=== PATIENT | female | born 1935 | race Caucasian/White ===

== ENCOUNTER 2017-07-23 19:42 | Inpatient (IN) | payer MEDICARE, MEDICAID ==
[~2017-07-23] VITALS: Ht 167.6 cm; Wt 81.6 kg
[~2017-07-23 19:42] MED LIST: ACET325T53 PO; ASPI-618 PO; ASPI81TA31 PO; Acetaminophen PO; Blood Sugar Diagnostic VI; CARV12.52 PO; CARV3.12 PO; DONE5TAB34 PO; EPOE1VIA12 IJ; ESCI10TA PO; FOLI0.8T23 PO; INSU100V28 SQ; LEVO50TA8 PO; LEVO75TA7 PO; LOSA50TA21 PO; MAGN400T26 PO; MAGN400T6 PO; MULT-24 PO; MULT1TAB73 PO; OMEP20CA10 PO; ONDA4TAB5 PO; PANT40TA2 PO; SIMV10TA2 PO
[2017-07-23] MEDS ORDERED: CARV12.5 PO (20:09)
[2017-07-23] MEDS ORDERED: MAG30ORA PO (20:09)
[2017-07-23] MEDS ORDERED: DOCU250C14 PO (20:09)
[2017-07-23] MEDS ORDERED: DONE10TA44 PO (20:09)
[2017-07-23] MEDS ORDERED: MIRT7.5T10 PO (20:09)
[2017-07-23] MEDS ORDERED: LORA0.5T PO (20:09)
[2017-07-23] MEDS ORDERED: TEMA7.5C2 PO (20:09)
[2017-07-23] MEDS ORDERED: QUET25TA34 PO ×2 (20:09)
[2017-07-23] MEDS ORDERED: BISA10SU8 RC (20:09)
[2017-07-23] MEDS ORDERED: ATOR10TA PO (20:09)
[2017-07-23] MEDS ORDERED: PANT40TA4 PO (20:09)
--- NOTE | 2017-07-23 20:10 | NUR ---
Patient to Radiology for CT scan via wheelchair.
--- NOTE | 2017-07-23 20:22 | NUR ---
Patient returned from CT, no acute distress noted.
--- NOTE | 2017-07-23 21:02 | NUR ---
Patient able to ambulate to restroom with assistance, urine specimen provided and taken to laboratory.
[2017-07-23 21:14] LABS: EOSINOPHILS # (AUTO) 0.1 K/uL (0.0-0.7); LYMPHOCYTES # (AUTO) 1.9 K/UL (0.8-4.8); MONOCYTES # (AUTO) 0.5 K/UL (0.1-1.30)
[2017-07-23 21:21] LABS: BASOPHILS % (AUTO) 0.4 % (0.0-2.0); HEMATOCRIT 26.9 % (37-47)
[2017-07-23 21:23] LABS: *BILIRUBIN,URIN NEGATIVE (NEGATIVE); *BLOOD, URINE Trace-lysed (NEGATIVE); *CLARITY,URINE CLEAR (CLEAR); *COLOR,URINE YELLOW (YELLOW); *KETONES,URINE NEGATIVE (NEGATIVE); *PROTEIN,URINE TRACE (NEGATIVE); *UROBILINOGEN,URINE 0.2 E.U./dl (NORMAL); LEUKOCYTE ESTERASE ,URINE TRACE (NEGATIVE); NITRITE, URINE NEGATIVE (NEGATIVE); PH,URINE 5.5 (5.0-8.0); UGLUCOSE NEGATIVE (NEGATIVE)
[2017-07-23 21:23] LABS: HEMOGLOBIN 9.2 G/DL (12.0-16.0); LYMPHOCYTES % (AUTO) 30.2 % (20.5-51.5); MEAN CORPUSCULAR HEMOGLOBIN 31.9 UUG (27.0-31.0); MEAN CORPUSCULAR HGB CONC 34 g/dL (32.0-37.0); MEAN CORPUSCULAR VOLUME 92.8 FL (81.0-99.0); MONOCYTES % (AUTO) 8.6 % (0.0-11.0); NEUTROPHILS # (AUTO) 3.9 K/UL (1.8-8.9); NEUTROPHILS % (AUTO) 58.8 % (38.5-71.5); PLATELET COUNT (AUTO) 185 K/UL (150-450); WHITE BLOOD COUNT (AUTO) 6.4 K/UL (4.0-11.2)
[2017-07-23 21:29] LABS: ALANINE AMINOTRANSFERASE 19 U/L (14-59); ALKALINE PHOSPHATASE 55 U/L (50-136); ASPARTATE AMINOTRANSFERASE 16 U/L (15-37); BILIRUBIN,DIRECT 0.1 mg/dL (0.0-0.2); BILIRUBIN,TOTAL 0.3 mg/dL (0.2-1.0); CARBON DIOXIDE 24 mmol/L (21-32); CHLORIDE 101 mmol/L (98-107); CREATININE 3.1 mg/dL (0.6-1.3); GLUCOSE 183 mg/dL (74-106); POTASSIUM 4.2 mmol/L (3.5-5.1); TOTAL PROTEIN, SERUM 7.5 g/dL (6.4-8.2); UREA NITROGEN, BLOOD 45 mg/dL (7-18)
[2017-07-23 21:35] LABS: ACETAMINOPHEN < 2.0 ug/mL (10-30); ETHANOL < 3 MG/DL (0-0)
[2017-07-23 21:42] LABS: BACTERIA,URINE NONE SEEN /HPF (NONE SEEN); SQUAMOUS EPITHELIAL CELL,UR FEW /HPF (NONE SEEN); WBC,URINE 0-3 /HPF (0-3)
--- NOTE | 2017-07-23 21:52 | NUR ---
Call placed to [facility], Dr. Roland will be paged.
[2017-07-23 21:56] LABS: *AMPHETAMINE, URINE NEGATIVE (NEGATIVE); *BARBITURATE, URINE NEGATIVE (NEGATIVE); *CANNABINOID, URINE NEGATIVE (NEGATIVE); *COCCAINE, URINE NEGATIVE (NEGATIVE); *OPIATE, URINE NEGATIVE (NEGATIVE); *PHENCYCLIDINE SCREEN,URINE NEGATIVE (NEGATIVE)
--- NOTE | 2017-07-23 22:42 | NUR ---
Pt. admitted to TELE, under care of Dr. Roland Belongs List completed
[2017-07-23 23:00] VITALS: BP 151/64
--- NOTE | 2017-07-23 23:00 | NUR ---
Admit new patient to vehicle monitor technician,patient alert,confused,disoriented ,but calm and co operative at present times,accompany by daughter,NSR on monitor, not on any distress,patient seen by ,plan of care explained to family.
[2017-07-23 23:05] LABS: THYROID STIMULATING HORMONE 0.736 mIU/mL (0.358-3.740)
[2017-07-23] MEDS ORDERED: BISACODYL 10 MG SUPP.RECT RC PRN (23:45)
[2017-07-23] MEDS ORDERED: MAG HYDROX/AL HYDROX/SIMETH 30 ML LIQUID UDC PO PRN (23:45)
[2017-07-23] MEDS ORDERED: ONDANSETRON 4 MG/2 ML VIAL IV PRN (23:45)
[2017-07-23] MEDS ORDERED: ACETAMINOPHEN 325 MG TABLET PO PRN ×2 (23:45)
--- NOTE | 2017-07-23 23:45 | NUR ---
Restoril 7.5 mg po admin for insomnia per family.
[2017-07-23] MEDS: TEMAZEPAM 7.5 MG CAPSULE PO PRN (23:46)
[2017-07-24] MEDS ORDERED: TEMAZEPAM 7.5 MG CAPSULE ONE
[2017-07-24] MEDS: IV 1/2NS 1000 ML 1,000 ML IV PRN ×3 (02:09→21:00)
--- NOTE | 2017-07-24 03:16 | NUR ---
patient got confused attempted removed iv line and tele, reoriented and hold ivf ,patient took fluid well ,bedside commode provided,bed alarm on, closed to NSG station for closely monitoring, bed alarm on.
[2017-07-24] MEDS: LORAZEPAM 0.5 MG TABLET PO PRN (03:37)
[2017-07-24] MEDS ORDERED: LORAZEPAM 0.5 MG TABLET ONE (03:52)
[2017-07-24 04:00] VITALS: BP 150/70
[2017-07-24 05:33] VITALS: BP 150/57
--- NOTE | 2017-07-24 06:18 | NUR ---
PATIENT ASLEEP ,EASILY AROUSE,NSR.FALL AND ASPIRATION PRECAUTIONS,BED ALARM ON.
[2017-07-24 06:54] LABS: BASOPHILS % (AUTO) 0.5 % (0.0-2.0); EOSINOPHILS # (AUTO) 0.1 K/uL (0.0-0.7); EOSINOPHILS % (AUTO) 2.5 % (0.0-7.0); HEMATOCRIT 26.8 % (37-47); HEMOGLOBIN 8.9 G/DL (12.0-16.0); LYMPHOCYTES % (AUTO) 33.8 % (20.5-51.5); MEAN CORPUSCULAR HEMOGLOBIN 31.4 UUG (27.0-31.0); MEAN CORPUSCULAR HGB CONC 33 g/dL (32.0-37.0); MONOCYTES # (AUTO) 0.7 K/UL (0.1-1.30); MONOCYTES % (AUTO) 11.9 % (0.0-11.0); NEUTROPHILS # (AUTO) 3.2 K/UL (1.8-8.9); NEUTROPHILS % (AUTO) 51.3 % (38.5-71.5); PLATELET COUNT (AUTO) 163 K/UL (150-450); RED BLOOD CELL COUNT(AUTO) 2.86 MIL/UL (4.2-5.4)
[2017-07-24] MEDS: LEVOTHYROXINE SODIUM 75 MCG TABLET PO SCH (07:07)
[2017-07-24 07:12] LABS: ALANINE AMINOTRANSFERASE 19 U/L (14-59); ALKALINE PHOSPHATASE 47 U/L (50-136); ASPARTATE AMINOTRANSFERASE 16 U/L (15-37); BILIRUBIN,TOTAL 0.4 mg/dL (0.2-1.0); CARBON DIOXIDE 23 mmol/L (21-32); CHLORIDE 105 mmol/L (98-107); CHOLESTEROL 146 mg/dL (<200); CREATININE 2.9 mg/dL (0.6-1.3); GLUCOSE 107 mg/dL (74-106); HDL CHOLESTEROL 64 mg/dL (40-60); MAGNESIUM 1.8 mg/dL (1.8-2.4); PHOSPHOROUS 4.6 mg/dL (2.5-4.9); POTASSIUM 4.1 mmol/L (3.5-5.1); TOTAL PROTEIN, SERUM 7.2 g/dL (6.4-8.2); TRIGLYCERIDES 54 MG/DL (30-150); UREA NITROGEN, BLOOD 45 mg/dL (7-18)
[2017-07-24 07:17] LABS: IRON, SERUM 62 ug/dL (50-175)
--- NOTE | 2017-07-24 07:30 | NUR ---
AWAKE ALERT CONFUSED AND DISORIENTED ATTEMPTING TO GET OUT OF BED SHE HAS A ONE ON ONE SITTER AT HER BEDSIDE FOR SAFETY.PATIENT PLACED INTO BED FIXED AND MADE COMFORTABLE SHE IS NOT ALLOWING THE IV TO BE CONNECTED SO THE IV IS OFF AT THIS TIME.
[2017-07-24 07:54] VITALS: BP 152/55
[2017-07-24] MEDS: FOLIC ACID/VITAMIN B COMP W-C TABLET PO SCH (09:08)
[2017-07-24] MEDS: PANTOPRAZOLE SODIUM 40 MG TABLET.DR PO SCH (09:09)
[2017-07-24] MEDS: QUETIAPINE FUMARATE 25 MG TABLET PO SCH ×2 (09:09→17:24)
[2017-07-24] MEDS: CARVEDILOL 12.5 MG TABLET PO SCH ×2 (09:09→21:00)
--- NOTE | 2017-07-24 11:10 | NUR ---
PATIENT IS IN BED ASLEEP AT THIS TIME IVF CONNECTED AND WRAPPED WITH KIRLIS TO PREVENT HER FROM PULLING IT OUT.WILL CONTINUE TO OBSERVE.
[2017-07-24 11:24] VITALS: BP 135/52
--- NOTE | 2017-07-24 14:00 | NUR ---
2 D ECKO OS 55-60 % EF SHE IS STILL RESTING WAKES UP FOR A FEW MINUTES THEN BACK TO SLEEP
[2017-07-24 15:23] VITALS: BP 160/74
[2017-07-24 20:00] VITALS: BP 148/71
--- NOTE | 2017-07-24 20:00 | NUR ---
RECEIVED PATIENT ASLEEP IN BED. EASILY AROSUABLE TO NAME AND TOUCH BUT QUICKLY FALLS BACK ASLEEP. IVF INFUSING WELL TO RIGHT AC. SITTER AT BEDSIDE FOR SAFETY. NO RESP. DISTRESS NOTED. BED ALARM ON. CALL LIGHT IN REACH. ALL NEEDS ATTENDED. WILL CONTINUE TO MONITOR.
[2017-07-24] MEDS: ATORVASTATIN 10 MG TABLET PO SCH (21:00)
[2017-07-24] MEDS ORDERED: Medication Not On Formulary EA (Mirtazapine 7.5 MG) PO SCH (21:00)
[2017-07-24] MEDS: DOCUSATE SODIUM 250 MG CAPSULE PO SCH (21:00)
[2017-07-24] MEDS: MIRTAZAPINE 15 MG TABLET PO SCH (21:00)
[2017-07-24] MEDS: MAGNESIUM OXIDE 400 MG TABLET PO SCH (21:00)
[2017-07-24] MEDS: DONEPEZIL 10 MG TABLET PO SCH (21:00)
--- NOTE | 2017-07-24 21:55 | NUR ---
UNABLE TO GIVE PATIENT HS MEDS AT THIS TIME. PATIENT IS NOT AWAKE ENOUGH TO TAKE PO MEDS. AROUSABLE TO NAME AND TOUCH BUT QUICKLY FALLS BACK ASLEEP. SITTER AT BEDSIDE FOR SAFETY. BED ALARM ON. WILL CONTINUE TO MONITOR.
--- NOTE | 2017-07-25 | NUR ---
PATIENT AGGRESSIVE WITH SITTER. PATIENT PULLED OUT IV HEPLOCK AND REFUSING FOR IT TO BE RESTARTED. WILL ATTEMPT TO START LATER.
--- NOTE | 2017-07-25 00:15 | NUR ---
PATIENT ASLEEP IN BED. EASILY AROUSABLE, BUT BECOMES EASILY AGITATED WHEN APPROACHED WITH IV START KIT. PATIENT REFUSING AT THIS TIME. RN DELIVERY NOTIFIED. PATIENT OFFERED WATER AND DRINKS WELL. WILL CONTINUE TO MONITOR.
[2017-07-25] MEDS: LEVOTHYROXINE SODIUM 75 MCG TABLET PO SCH ×2 (06:11→07:04)
[2017-07-25] MEDS: PANTOPRAZOLE SODIUM 40 MG TABLET.DR PO SCH ×2 (06:11→07:04)
--- NOTE | 2017-07-25 06:31 | NUR ---
PATIENT ASLEEP. EASILY AROUSABLE. PATIENT IS REFUSING FOR VITALS TO BE TAKEN AT THIS TIME. PATIENT BECOMES VERY AGGRESSIVE AND AGITATED, YELLING, "NO!" UNABLE TO RESTART IV AT THIS TIME. SITTER AT BEDSIDE. WILL CONTINUE TO MONITOR.
[2017-07-25 07:00] VITALS: BP 155/70
--- NOTE | 2017-07-25 07:01 | NUR ---
PATIENT AWAKE. ASSISTED TO BSC. PATIENT COOPERATIVE AT THIS TIME WITH THE VS AND PATIENT AGREED TO TAKE PO MEDS, SYNTHROID AND PROTONIX. SITTER AT BEDSIDE.
[2017-07-25] MEDS: QUETIAPINE FUMARATE 25 MG TABLET PO SCH ×2 (08:35→16:30)
[2017-07-25] MEDS: FOLIC ACID/VITAMIN B COMP W-C TABLET PO SCH (08:35)
[2017-07-25] MEDS: ASPIRIN EC 81 MG TABLET.DR PO SCH (08:35)
[2017-07-25 08:36] VITALS: BP 140/56
[2017-07-25] MEDS: CARVEDILOL 12.5 MG TABLET PO SCH ×2 (08:36→21:22)
--- NOTE | 2017-07-25 09:00 | NUR ---
DONA KING FRONT END WEB DESIGNER HERE TO SEE PATIENT AND I NOTIFIED HIM THE PATIENT HAS REFUSED TO HAVE HER IV RESTARTED AND SHE IS NOT GETTING HER IV FLUIDS DUE TO NO IV ACCESS AND HE STATED OKAY LONG THE PATIENT IS DRINKING ORALLY AND THE SITTER CONFIRMED THAT HER ORAL FLUID INTAKE HAS BEEN ADEQUATE.
[2017-07-25 10:05] LABS: BASOPHILS % (AUTO) 0.7 % (0.0-2.0); EOSINOPHILS # (AUTO) 0.2 K/uL (0.0-0.7); EOSINOPHILS % (AUTO) 3.4 % (0.0-7.0); HEMATOCRIT 26.5 % (31.2-41.9); HEMOGLOBIN 9.1 g/dL (10.9-14.3); LYMPHOCYTES # (AUTO) 1.5 K/uL (20.0-40.0); LYMPHOCYTES % (AUTO) 30.8 % (20.5-51.5); MEAN CORPUSCULAR HEMOGLOBIN 32.1 uug (24.7-32.8); MEAN CORPUSCULAR HGB CONC 34 g/dL (32.3-35.6); MEAN CORPUSCULAR VOLUME 94.1 fL (75.5-95.3); MONOCYTES # (AUTO) 0.5 K/uL (2.0-10.0); MONOCYTES % (AUTO) 9.7 % (0.0-11.0); NEUTROPHILS # (AUTO) 2.7 K/uL (1.8-8.9); NEUTROPHILS % (AUTO) 55.4 % (38.5-71.5); PLATELET COUNT (AUTO) 150 K/uL (179-408); RED BLOOD CELL COUNT(AUTO) 2.82 MIL/uL (3.63-4.92); WHITE BLOOD COUNT (AUTO) 4.9 K/uL (3.8-11.8)
[2017-07-25 10:35] LABS: ALANINE AMINOTRANSFERASE 20 U/L (14-59); ALKALINE PHOSPHATASE 47 U/L (50-136); ASPARTATE AMINOTRANSFERASE 16 U/L (15-37); BILIRUBIN,TOTAL 0.3 mg/dL (0.2-1.0); CARBON DIOXIDE 25 mmol/L (21-32); CHLORIDE 105 mmol/L (98-107); CREATININE 2.8 mg/dL (0.6-1.3); GLUCOSE 156 mg/dL (74-106); PHOSPHOROUS 4.3 mg/dL (2.5-4.9); POTASSIUM 4.1 mmol/L (3.5-5.1); TOTAL PROTEIN, SERUM 6.8 g/dL (6.4-8.2); UREA NITROGEN, BLOOD 43 mg/dL (7-18)
--- NOTE | 2017-07-25 11:30 | NUR ---
DR MARY HERE TO SEE PATIENT AND STATED THAT SHE WILL ADJUST PATIENTS PSYCH MEDICATIONS
[2017-07-25 14:13] LABS: *BILIRUBIN,URIN NEGATIVE (NEGATIVE); *BLOOD, URINE Trace-intact (NEGATIVE); *CLARITY,URINE CLEAR (CLEAR); *COLOR,URINE LIGHT YELLOW (YELLOW); *KETONES,URINE NEGATIVE (NEGATIVE); *PROTEIN,URINE NEGATIVE (NEGATIVE); *UROBILINOGEN,URINE 0.2 E.U./dl (NORMAL); LEUKOCYTE ESTERASE ,URINE NEGATIVE (NEGATIVE); NITRITE, URINE NEGATIVE (NEGATIVE); PH,URINE 5.5 (5.0-8.0); UGLUCOSE NEGATIVE (NEGATIVE)
[2017-07-25] MEDS ORDERED: QUETIAPINE FUMARATE 25 MG TABLET PO PRN (14:15)
[2017-07-25 14:30] LABS: BACTERIA,URINE NONE SEEN /HPF (NONE SEEN); RBC,URINE 0-3 /HPF (0-3); SQUAMOUS EPITHELIAL CELL,UR MODERATE /HPF (NONE SEEN)
[2017-07-25 14:51] LABS: *CREATININE,URINE 29.2 mg/dL (30-125); *URINE TOTAL PROTEIN RANDOM 16.3 mg/dL (<150/24HR)
--- NOTE | 2017-07-25 18:00 | NUR ---
PATIENT IS ALERT TO SELF COOPERATIVE AND COMPLIANT WITH HER MEDICATIONS BUT CONTINUE TO NEED ONE ON ONE SITTER FOR SAFETY SECONDARY TO AT RISKS FOR FALLS.WILL CONTINUE TO OBSERVE AND PROVIDE SAFE AND THERAPEUTIC ENVIRONMENT AT ALL TIMES.
[2017-07-25] MEDS ORDERED: QUETIAPINE FUMARATE 25 MG TABLET PO SCH (20:00)
--- NOTE | 2017-07-25 20:00 | NUR ---
PATIENT AWAKE IN BED WITH SITTER AT BEDSIDE. DENIES PAIN. NO RESP. DISTRESS NOTED. BED ALARM ON. CALL LIGHT IN REACH. ALL NEEDS ATTENDED. WILL CONTINUE TO MONITOR .
[2017-07-25 20:30] VITALS: BP 116/59
[2017-07-25] MEDS: DONEPEZIL 10 MG TABLET PO SCH (20:39)
[2017-07-25] MEDS: MAGNESIUM OXIDE 400 MG TABLET PO SCH (20:39)
[2017-07-25] MEDS: DOCUSATE SODIUM 250 MG CAPSULE PO SCH (20:39)
[2017-07-25] MEDS: ATORVASTATIN 10 MG TABLET PO SCH (20:39)
[2017-07-25] MEDS: MIRTAZAPINE 15 MG TABLET PO SCH (20:40)
[2017-07-26] MEDS: TEMAZEPAM 7.5 MG CAPSULE PO PRN (00:41)
--- NOTE | 2017-07-26 03:05 | NUR ---
REPORT GIVEN BY LANCE MOE. PATIENT ASLEEP IN BED, EASILY AROUSABLE, IN NO DISTRESS. 1:1 SITTER PROVIDED FOR SAFETY. WILL CONTNUE PLAN OF CARE AND MONITOR.
[2017-07-26] MEDS: PANTOPRAZOLE SODIUM 40 MG TABLET.DR PO SCH (06:23)
[2017-07-26] MEDS: LEVOTHYROXINE SODIUM 75 MCG TABLET PO SCH (06:23)
--- NOTE | 2017-07-26 06:28 | NUR ---
Pt slept well, total of 4.5 hours, in no acute distress, no behavioral changes throughout the shift. Pt is cooperative and compliant with medication. 1:1 sitter provided for safety. Safety measures in place, will continue to monitor.
--- NOTE | 2017-07-26 08:00 | NUR ---
PT RECEIVED LAYING IN BED, NO ACUTE DISTRESS NOTED. AOX1, CONFUSED AND DISORIENTED. NO AGGRESSIVE OR COMBATIVE BEHAVIOR. 1:1 SITTER AT BEDSIDE.
[2017-07-26 08:06] LABS: BASOPHILS % (AUTO) 0.8 % (0.0-2.0); EOSINOPHILS # (AUTO) 0.2 K/uL (0.0-0.7); EOSINOPHILS % (AUTO) 4.2 % (0.0-7.0); HEMATOCRIT 26.9 % (31.2-41.9); HEMOGLOBIN 9.2 g/dL (10.9-14.3); LYMPHOCYTES # (AUTO) 1.9 K/uL (20.0-40.0); LYMPHOCYTES % (AUTO) 36.5 % (20.5-51.5); MEAN CORPUSCULAR HEMOGLOBIN 31.9 uug (24.7-32.8); MEAN CORPUSCULAR HGB CONC 34 g/dL (32.3-35.6); MEAN CORPUSCULAR VOLUME 93.5 fL (75.5-95.3); MONOCYTES # (AUTO) 0.6 K/uL (2.0-10.0); MONOCYTES % (AUTO) 12.5 % (0.0-11.0); NEUTROPHILS # (AUTO) 2.4 K/uL (1.8-8.9); PLATELET COUNT (AUTO) 145 K/uL (179-408); RED BLOOD CELL COUNT(AUTO) 2.88 MIL/uL (3.63-4.92); WHITE BLOOD COUNT (AUTO) 5.1 K/uL (3.8-11.8)
[2017-07-26] MEDS: QUETIAPINE FUMARATE 25 MG TABLET PO SCH ×2 (08:16→17:24)
[2017-07-26] MEDS: ASPIRIN EC 81 MG TABLET.DR PO SCH (08:16)
[2017-07-26] MEDS: FOLIC ACID/VITAMIN B COMP W-C TABLET PO SCH (08:16)
[2017-07-26 08:22] LABS: ALANINE AMINOTRANSFERASE 15 U/L (14-59); ALKALINE PHOSPHATASE 49 U/L (50-136); ASPARTATE AMINOTRANSFERASE 15 U/L (15-37); BILIRUBIN,TOTAL 0.3 mg/dL (0.2-1.0); CARBON DIOXIDE 24 mmol/L (21-32); CHLORIDE 104 mmol/L (98-107); CREATINE KINASE, TOTAL 87 U/L (26-192); CREATININE 2.4 mg/dL (0.6-1.3); GLUCOSE 123 mg/dL (74-106); MAGNESIUM 2.1 mg/dL (1.8-2.4); TOTAL PROTEIN, SERUM 6.8 g/dL (6.4-8.2); UREA NITROGEN, BLOOD 39 mg/dL (7-18)
[2017-07-26] MEDS: CARVEDILOL 12.5 MG TABLET PO SCH (08:46)
[2017-07-26] MEDS ORDERED: ASPI-618 PO (11:03)
[2017-07-26 11:55] VITALS: BP 125/46
[2017-07-26] MEDS: LORAZEPAM 0.5 MG TABLET PO PRN (14:35)
--- NOTE | 2017-07-26 14:40 | NUR ---
PT OBSERVED IRRITABLE AND AGITATED, GIVEN ATIVAN PRN ORDERED. 1:1 SITTER AT BEDSIDE.
[2017-07-26 16:00] VITALS: BP 132/50
--- NOTE | 2017-07-26 18:40 | NUR ---
DISCHARGE NOTE PT DISCHARGING TO [facility] IN [place] VIA AMBULANCE. PT IS AOX1, CONFUSED AND DISORIENTED ALTHOUGH COOPERATIVE AND CALM AT THIS TIME. DENIES ANY SUICIDAL/HOMICIDAL THOUGHTS. NO AGGRESSIVE/COMBATIVE BEHAVIOR. PT ALSO DENIES ANY PAIN OR SOB AT THIS TIME. PT IS AMBULATORY AND INDEPENDENT WITH MEALS, STAND BY ASSIST. DISCHARGE INSTRUCTIONS AND MEDICATION LIST GIVEN TO [facility]. REPORT ENDORSED TO ARIANNE AG AT [facility]. PER KIMBERLI PT RECEIVED FLU AND PNEUMO VACCINE AT [facility] THIS SEASON. SPOKE WITH DAUGHTER HAYLEY AND SHE IS AWARE PT IS GOING TO [facility]. NO ACUTE DISTRESS NOTED. BELONGINGS SENT WITH PT.
[2017-07-27 15:09] LABS: A/G RATIO 1.3 (0.7-1.7); ALBUMIN 3.4 g/dL (2.9-4.4); ALPHA-1-GLOBULIN 0.2 g/dL (0.0-0.4); ALPHA-2-GLOBULIN 0.8 g/dL (0.4-1.0); BETA GLOBULIN 0.7 g/dL (0.7-1.3); GAMMA GLOBULIN 1.1 g/dL (0.4-1.8); GLOBULIN, TOTAL 2.7 g/dL (2.2-3.9); M-SPIKE Not Observed g/dL (Not Observed)
== END 2017-07-26 18:45 | DRG 682 ==
LOC: ER 19:45 → TELE 22:37 → MERGE 22:37 → MED 07-24 13:33
PROVIDERS: ADMIT Internal Medicine; ATTEND Internal Medicine
DX: N17.0 Acute kidney failure with tubular necrosis (principal); I21.4 Non-ST elevation (NSTEMI) myocardial infarction; G93.40 Encephalopathy, unspecified; I13.0 Hypertensive heart and chronic kidney disease with heart failure and stage 1 through stage 4 chronic kidney disease, or unspecified chronic kidney disease; I50.32 Chronic diastolic (congestive) heart failure; F02.81 Dementia in other diseases classified elsewhere, unspecified severity, with behavioral disturbance; I69.359 Hemiplegia and hemiparesis following cerebral infarction affecting unspecified side; N18.4 Chronic kidney disease, stage 4 (severe); E11.22 Type 2 diabetes mellitus with diabetic chronic kidney disease; G30.9 Alzheimer's disease, unspecified; D63.1 Anemia in chronic kidney disease; E03.9 Hypothyroidism, unspecified; E78.5 Hyperlipidemia, unspecified; Z79.899 Other long term (current) drug therapy; K21.9 Gastro-esophageal reflux disease without esophagitis; Z98.61 Coronary angioplasty status; I25.10 Atherosclerotic heart disease of native coronary artery without angina pectoris; G90.8 Other disorders of autonomic nervous system; F29 Unspecified psychosis not due to a substance or known physiological condition; F25.1 Schizoaffective disorder, depressive type; E11.21 Type 2 diabetes mellitus with diabetic nephropathy; E11.51 Type 2 diabetes mellitus with diabetic peripheral angiopathy without gangrene; M19.90 Unspecified osteoarthritis, unspecified site; Z91.81 History of falling
CPT/HCPCS: 36415; 70030-TC; 70450; 71010; 72125; 76770; 80307; 83550; 83605; 83735; 83970; 84100; 84155; 84156; 84165; 84300; 84443; 85025; 85730; 87040; 87086; 93005; 93307; A4663; C1758; G0480; G0480-TC; J3490